=== PATIENT | male | born 1995 | race Caucasian/White ===

== ENCOUNTER 2018-07-09 10:25 | Emergency (ER) | payer SELFPAY ==
[2018-07-09] MEDS ORDERED: Ketorolac 30 MG/ML SDV IM ONE (10:42)
[2018-07-09] MEDS ORDERED: Ondansetron 4 MG/2 ML SDV IM ONE (10:42)
--- NOTE | 2018-07-09 10:46 | EDM.PDOC ---
ED HPI GENERAL MEDICAL PROBLEM - General Chief Complaint: Back Pain or Injury Stated Complaint: LOWER BACK PAIN Time Seen by Provider: 07/09/18 10:35 Source of Information: Reports: Patient History Limitations: Reports: No Limitations - History of Present Illness INITIAL COMMENTS - FREE TEXT/NARRATIVE: Oswaldo comes in with L CVA pain and some nausea for 2 weeks. There is no injury hx, no trauma, and no hx of stone disease or UTI. He has taken Tylenol for pain. He is on no meds. back Pain Score (Numeric/FACES): 9 - Related Data Allergies Allergy/AdvReac Type Severity Reaction Status Date / Time No Known Allergies Allergy Verified 07/09/18 11:41 Home Meds: Home Meds Tamsulosin HCl [Flomax] 0.4 mg PO DAILY #7 cap.er.24h 07/09/18 [Rx] ED ROS GENERAL - Review of Systems Review Of Systems: ROS reveals no pertinent complaints other than HPI. ED EXAM, RENAL/ - Physical Exam Exam: See Below Exam Limited By: Language Barrier (mother is interpreting Urdu) General Appearance: Alert, WD/WN, Mild Distress Eye Exam: Bilateral Eye: EOMI, Normal Inspection, PERRL Ears: Normal External Exam, Normal TMs Nose: Normal Inspection Throat/Mouth: Normal Inspection, Normal Lips, Normal Teeth, Normal Gums, Normal Oropharynx, Normal Voice Head: Normocephalic Neck: Normal Inspection, Supple, Non-Tender Respiratory/Chest: No Respiratory Distress, Lungs Clear, Normal Breath Sounds, No Accessory Muscle Use, Chest Non-Tender Cardiovascular: Regular Rate, Rhythm, No Murmur GI/Abdominal: Normal Bowel Sounds, Soft, Non-Tender, No Organomegaly, No Distention, No Mass (Male) Exam: Deferred Rectal (Males) Exam: Deferred Back Exam: Normal Inspection, Full Range of Motion, CVA Tenderness (L) Extremities: Normal Inspection Neurological: Alert, Oriented, CN II-XII Intact, Normal Cognition, Normal Gait, No Motor/Sensory Deficits Psychiatric: Normal Affect, Normal Mood Skin Exam: Warm, Dry, Intact, Normal Color, No Rash Lymphatic: No Adenopathy Course - Vital Signs Text/Narrative:: Following assessment, I administered Toradol 30 mg IM and Zofran 4 mg IM with relief of sxs. The screening labs confirmed hematuria, and a Abd-Pelvic CT wo contrast was obtained: 2 small stones in distal L ureter measuring 2 mm each, in addition to some hydroureter, and multiple stones in both kidneys. He was administered Flomax .4 mg po before discharge. Last Recorded V/S: Last Vital Signs Temp 37.1 C 07/09/18 12:00 Pulse 56 L 07/09/18 12:00 Resp 17 07/09/18 12:00 BP 155/61 H 07/09/18 12:00 Pulse Ox 100 07/09/18 12:00 - Orders/Labs/Meds Orders: Active Orders 24 hr Category Date Time Status Abdomen Pelvis wo Cont [CT] Stat Exams 07/09/18 12:00 Taken Labs: Laboratory Tests 07/09/18 07/09/18 07/09/18 Range/Units 10:52 11:00 11:00 WBC 13.0 H (4.5-12.0) X10-3/uL RBC 5.17 (4.30-5.75) x10(6)uL Hgb 15.1 (13.5-17.8) g/dL Hct 46.0 (30.0-51.3) % MCV 88.9 (80-96) fL MCH 29.2 (27.7-33.6) pg MCHC 32.9 (32.2-35.4) g/dL RDW 12.6 (11.5-15.5) % Plt Count 259 (125-369) X10(3)uL MPV 9.7 (7.4-10.4) fL Neut % (Auto) 87.9 H (46-82) % Lymph % (Auto) 7.5 L (13-37) % [place] % (Auto) 3.5 L (4-12) % Eos % (Auto) 0 L (1.0-5.0) % Baso % (Auto) 1 (0-2) % Neut # (Auto) 11.4 H (1.6-8.3) # Lymph # (Auto) 1.0 (0.6-5.0) # Prairie # (Auto) 0.5 (0.0-1.3) # Eos # (Auto) 0.0 (0.0-0.8) # Baso # (Auto) 0.1 (0.0-0.2) # Sodium 139 (135-145) mmol/L Potassium 4.1 (3.5-5.3) mmol/L Chloride 101 (100-110) mmol/L Carbon Dioxide 30 (21-32) mmol/L BUN 13 (7-18) mg/dL Creatinine 1.2 (0.70-1.30) mg/dL Est Cr Clr Drug Dosing TNP Estimated GFR (MDRD) > 60 (>60) BUN/Creatinine Ratio 10.8 (9-20) Glucose 107 (80-116) mg/dL Calcium 9.4 (8.6-10.2) mg/dL Urine Color Yellow (YELLOW) Urine Appearance Slightly cloudy (CLEAR) Urine pH 9.0 H (5.0-6.5) Ur Specific [place] 1.015 (1.010-1.025) Urine Protein Negative (NEGATIVE) mg/dL Urine Glucose (UA) Normal (NORMAL) mg/dL Urine Ketones Negative (NEGATIVE) mg/dL Urine Occult Blood Large H (NEGATIVE) Urine Nitrite Negative (NEGATIVE) Urine Bilirubin Negative (NEGATIVE) Urine Urobilinogen Normal (NEGATIVE) mg/dL Ur Leukocyte Esterase Negative (NEGATIVE) Urine RBC >100 H (0-5) Urine WBC 0-5 (0-5) Ur Squamous Epith Cells Rare (NS,R,O) Urine Bacteria Rare H (NS) Meds: Medications Discontinued Medications Generic Name Dose Route Start Last Admin Trade Name Freq PRN Reason Stop Dose Admin Ketorolac Tromethamine 30 mg 07/09/18 10:42 07/09/18 10:51 Toradol IM 07/09/18 10:43 30 mg ONETIME ONE Administration Ondansetron HCl 4 mg 07/09/18 10:42 07/09/18 10:51 Zofran IM 07/09/18 10:43 4 mg ONETIME ONE Administration Tamsulosin HCl 0.4 mg 07/09/18 13:02 07/09/18 13:08 Flomax PO 07/09/18 13:03 0.4 mg ONETIME ONE Administration Departure - Departure Time of Disposition: 13:10 Disposition: Home, Self-Care 01 Condition: Fair Clinical Impression: Bilateral nephrolithiasis, Ureterolithiasis - Discharge Information *PRESCRIPTION DRUG MONITORING PROGRAM REVIEWED*: Not Applicable *COPY OF PRESCRIPTION DRUG MONITORING REPORT IN PATIENT JOEY: Not Applicable Prescriptions: Tamsulosin HCl [Flomax] 0.4 mg PO DAILY #7 cap.er.24h Referrals: PCP,Not In Area [Primary Care Provider] - Forms: ED Department Discharge - Problem List & Annotations (1) Bilateral nephrolithiasis SNOMED Code(s): 34920014 Code(s): N20.0 - CALCULUS OF KIDNEY Status: Acute Current Visit: Yes Annotation/Comment:: Follow up with PCP. (2) Ureterolithiasis SNOMED Code(s): 61458406 Code(s): N20.1 - CALCULUS OF URETER Status: Acute Current Visit: Yes Annotation/Comment:: I dispensed Flomax .4 mg po qd, strain all urine, and follow up with PCP when stone debris is collected. - Problem List Review Problem List Initiated/Reviewed/Updated: Yes - My Orders Last 24 Hours: My Active Orders 07/09/18 12:00 Abdomen Pelvis wo Cont [CT] Stat - Assessment/Plan Last 24 Hours: My Active Orders 07/09/18 12:00 Abdomen Pelvis wo Cont [CT] Stat Plan: Follow up with PCP.
[2018-07-09] MEDS ORDERED: Tamsulosin 0.4 MG Cap.ER PO ONE (13:02)
== END 2018-07-09 13:23 | disposition home or self-care (01) ==
LOC: FB.ED 10:25
DX: N13.2 Hydronephrosis with renal and ureteral calculous obstruction (principal)
CPT/HCPCS: 36415; 74176; 80048; 81001; 85025; 96372; 99284; A9270; J1885; J2405